=== PATIENT | male | born 1995 | race Caucasian/White ===

== ENCOUNTER 2016-12-01 11:50 | Emergency (ER) | payer SELFPAY ==
[~2016-12-01] VITALS: Ht 172.7 cm; Wt 75.0 kg
[2016-12-01] MEDS ORDERED: KETOROLAC TROMETHAMINE 30 MG/ML VIAL IVP ONE (13:00)
[2016-12-01 13:48] VITALS: BP 125/76
== END 2016-12-01 13:58 | disposition home or self-care (01) ==
LOC: EMS 11:57
DX: M94.0 Chondrocostal junction syndrome [Tietze] (principal); R07.89 Other chest pain; F17.210 Nicotine dependence, cigarettes, uncomplicated
CPT/HCPCS: 71010; 93005; 96374; 99285; 99406; J1885

== ENCOUNTER 2016-12-03 08:15 | Emergency (ER) | payer MEDICAID ==
[~2016-12-03] VITALS: Ht 172.7 cm; Wt 74.0 kg
[2016-12-03] MEDS ORDERED: KETOROLAC TROMETHAMINE 60 MG/2 ML VIAL IM ONE (11:00)
[2016-12-03 11:33] VITALS: BP 127/71
== END 2016-12-03 11:46 | disposition home or self-care (01) ==
LOC: EMS 08:17
DX: M94.0 Chondrocostal junction syndrome [Tietze] (principal); F17.210 Nicotine dependence, cigarettes, uncomplicated
CPT/HCPCS: 36415; 71010; 84484; 93005; 96372; 99285; J1885